=== PATIENT | female | born 1995 | race African-American/Black ===

== ENCOUNTER 2020-06-27 21:47 | Emergency (ER) | payer SELFPAY ==
[~2020-06-27] VITALS: Ht 157.5 cm; Wt 65.9 kg
[~2020-06-27 21:47] MED LIST: CEPH500C PO; ONDA8TAB13 PO
[2020-06-27] MEDS ORDERED: FAMOTIDINE 20 MG (PEPCID) TABLET PO STA (22:05)
[2020-06-27] MEDS ORDERED: ONDANSETRON 4 MG/2 ML (SDV) Z0FRAN IVP ONE ×2 (22:15→23:30)
[2020-06-27] MEDS ORDERED: LIDOCAINE 2% VISCOUS 15 ML UDC PO ONE (22:15)
[2020-06-27] MEDS ORDERED: ANTACID SUSP 30 ML UDC (MYLANTA) PO ONE (22:15)
[2020-06-27] MEDS ORDERED: LACTATED RINGERS 1,000 ML IV ONE (22:15)
[2020-06-27 22:18] LABS: BASOPHILS % (AUTO) 0 % (0-10); EOSINOPHILS % (AUTO) 0 % (0-10); HEMATOCRIT 44 % (35-52); HEMOGLOBIN 15.2 g/dL (11.5-16.0); LYMPHOCYTES # (AUTO) 0.4 10^3/uL (1.0-4.0); LYMPHOCYTES % (AUTO) 5 % (12-44); MEAN CORPUSCULAR HEMOGLOBIN 31 pg (25-34); MEAN CORPUSCULAR HGB CONC 35 g/dL (32-36); MEAN CORPUSCULAR VOLUME 88 fL (80-99); MEAN PLATELET VOLUME 10.1 fL (9.0-12.2); MONOCYTES # (AUTO) 0.6 10^3/uL (0.0-1.0); MONOCYTES % (AUTO) 8 % (0-12); NEUTROPHILS # (AUTO) 6.4 10^3/uL (1.8-7.8); NEUTROPHILS % (AUTO) 87 % (42-75); PLATELET COUNT 187 10^3/uL (130-400); WHITE BLOOD COUNT 7.4 10^3/uL (4.3-11.0)
--- NOTE | 2020-06-27 22:19 | ED GI ---
General Chief Complaint: Abdominal/GI Problems Stated Complaint: CHILLS/VOMITING/SOB Source of Information: Patient Exam Limitations: No Limitations History of Present Illness Date Seen by Provider: Jun 27, 2020 Time Seen by Provider: 22:06 Initial Comments Patient arrives ER by private conveyance from home with chief complaint nausea vomiting starting about 5:00 this afternoon after she got off work and ate at [employer]. No one else in her democrat got sick. She has had no diarrhea. She had a normal stool earlier today. She has had no fever chills cough shortness of air but she started noticing some flecks of red blood in her emesis after the fourth or fifth episode and decided that she should come get checked out. She does not have a primary care doctor. She does have Nexplanon in place. Allergies and Home Medications Allergies Coded Allergies: No Known Drug Allergies (Unverified , 08/13/13) Home Medications Ondansetron 4 Mg Tab.rapdis, 4-8 MG PO Q6H PRN for NAUSEA/VOMITING Prescribed by: TOMMY VIGIL on 06/27/20 2331 Promethazine HCl 25 Mg Tablet, 25 MG PO Q6H PRN for NAUSEA/VOMITING Prescribed by: TOMMY VIGIL on 06/28/20 0033 Patient Home Medication List Home Medication List Reviewed: Yes Review of Systems Review of Systems Constitutional: No chills, No diaphoresis, No fever, No malaise EENTM: No Blurred Vision, No Double Vision, No Eye Tearing Respiratory: Denies Cough, Denies Shortness of Air Cardiovascular: Denies Chest Pain, Denies Lightheadedness Gastrointestinal: Abdominal Pain (Epigastric); Denies Constipated, Denies Diarrhea; Nausea, Vomiting Genitourinary: Denies Burning, Denies Discharge Musculoskeletal: No back pain, No joint pain All Other Systems Reviewed Negative Unless Noted: Yes Past Lzfxdhe-Mgczev-Udbvyu Hx Patient Social History Alcohol Use: Occasionally Uses Drug of Choice: Denies Smoking Status: Never a Smoker Past Medical History Hypertension Adverse Reaction/Blood Tranf: No Physical Exam Vital Signs Vital Signs - First Documented 06/27/20 21:58 Temp 36.1 Pulse 98 Resp 17 B/P (MAP) 137/86 (103) Pulse Ox 100 O2 Delivery Room Air Capillary Refill : Height/Weight/BMI Height: 5'3" Weight: 140lbs. oz. 63.800145mt; BMI Method:Stated General Appearance: WD/WN, mild distress HEENT: PERRL/EOMI, pharynx normal Neck: full range of motion, normal inspection Respiratory: lungs clear, normal breath sounds, no respiratory distress, no accessory muscle use Cardiovascular: normal peripheral pulses, regular rate, rhythm, no edema Peripheral Pulses: 2+ Dorsalis Pedis (R), 2+ Left Dors-Pedis (L) Gastrointestinal: normal bowel sounds, non tender, soft, no organomegaly Neurologic/Psychiatric: alert, normal mood/affect, oriented x 3 Skin: normal color, warm/dry Progress/Results/Core Measures Results/Orders Lab Results Laboratory Tests Test 06/27/20 22:05 Range/Units White Blood Count 7.4 4.3-11.0 10^3/uL Red Blood Count 4.97 3.80-5.11 10^6/uL Hemoglobin 15.2 11.5-16.0 g/dL Hematocrit 44 35-52 % Mean Corpuscular Volume 88 80-99 fL Mean Corpuscular Hemoglobin 31 25-34 pg Mean Corpuscular Hemoglobin Concent 35 32-36 g/dL Red Cell Distribution Width 11.2 10.0-14.5 % Platelet Count 187 130-400 10^3/uL Mean Platelet Volume 10.1 9.0-12.2 fL Immature Granulocyte % (Auto) 0 % Neutrophils (%) (Auto) 87 H 42-75 % Lymphocytes (%) (Auto) 5 L 12-44 % Monocytes (%) (Auto) 8 0-12 % Eosinophils (%) (Auto) 0 0-10 % Basophils (%) (Auto) 0 0-10 % Neutrophils # (Auto) 6.4 1.8-7.8 10^3/uL Lymphocytes # (Auto) 0.4 L 1.0-4.0 10^3/uL Monocytes # (Auto) 0.6 0.0-1.0 10^3/uL Eosinophils # (Auto) 0.0 0.0-0.3 10^3/uL Basophils # (Auto) 0.0 0.0-0.1 10^3/uL Immature Granulocyte # (Auto) 0.0 0.0-0.1 10^3/uL Neutrophils % (Manual) 70 % Lymphocytes % (Manual) 2 % Monocytes % (Manual) 15 % Eosinophils % (Manual) 0 % Basophils % (Manual) 0 % Band Neutrophils 5 % Reactive Lymphocytes 8 % Blood Morphology Comment NORMAL Sodium Level 137 135-145 MMOL/L Potassium Level 3.5 L 3.6-5.0 MMOL/L Chloride Level 104 98-107 MMOL/L Carbon Dioxide Level 20 L 21-32 MMOL/L Anion Gap 13 5-14 MMOL/L Blood Urea Nitrogen 12 7-18 MG/DL Creatinine 0.84 0.60-1.30 MG/DL Estimat Glomerular Filtration Rate > 60 BUN/Creatinine Ratio 14 Glucose Level 116 H 70-105 MG/DL Calcium Level 8.5 8.5-10.1 MG/DL Corrected Calcium 8.5-10.1 MG/DL Total Bilirubin 0.9 0.1-1.0 MG/DL Aspartate Amino Transf (AST/SGOT) 22 5-34 U/L Alanine Aminotransferase (ALT/SGPT) 9 0-55 U/L Alkaline Phosphatase 52 40-136 U/L C-Reactive Protein High Sensitivity 0.08 0.00-0.50 MG/DL Total Protein 7.9 6.4-8.2 GM/DL Albumin 4.6 H 3.2-4.5 GM/DL Lipase 8 8-78 U/L Coronavirus 2019 (JOSE) Negative Not Detecte My Orders Orders - TOMMY VIGIL Ed Iv/Invasive Line Start (06/27/20 22:05) Lactated Ringers (Lr 1000 Ml Iv Solution (06/27/20 22:15) Ondansetron Injection (Zofran Injectio (06/27/20 22:15) Lidocaine 2% Viscous 15 Ml (Xylocaine Vi (06/27/20 22:15) Famotidine Tablet (Pepcid Tablet) (06/27/20 22:05) Antacid Suspension (Mylanta Suspension (06/27/20 22:15) Cbc With Automated Diff (06/27/20 22:05) Comprehensive Metabolic Panel (06/27/20 22:05) Hs C Reactive Protein (06/27/20 22:05) Lipase (06/27/20 22:05) Covid 19 Inhouse Test (06/27/20 22:05) Manual Differential (06/27/20 22:05) Ondansetron Injection (Zofran Injectio (06/27/20 23:30) Rx-Ondansetron Po (Rx-Zofran Po) (06/27/20 23:42) Promethazine Injection (Phenergan Injec (06/28/20 00:00) Lactated Ringers (Lr 1000 Ml Iv Solution (06/28/20 00:00) Medications Given in ED Current Medications Medications Dose Ordered Sig/Parviz Route Start Time Stop Time Status Last Admin Dose Admin Lactated Ringer's 1,000 ml @ 0 mls/hr Q0M ONCE IV 06/27/20 22:15 06/27/20 22:16 DC 06/27/20 22:17 0 MLS/HR Lactated Ringer's 1,000 ml @ 0 mls/hr Q0M ONCE IV 06/28/20 00:00 06/28/20 00:01 DC 06/27/20 23:57 0 MLS/HR Ondansetron HCl 4 mg ONCE ONCE IVP 06/27/20 22:15 06/27/20 22:16 DC 06/27/20 22:17 4 MG Ondansetron HCl 4 mg ONCE ONCE IVP 06/27/20 23:30 06/27/20 23:31 DC 06/27/20 23:25 4 MG Promethazine HCl 25 mg ONCE ONCE IVP 06/28/20 00:00 06/28/20 00:01 DC 06/27/20 23:57 25 MG Vital Signs/I&O 06/27/20 21:58 Temp 36.1 Pulse 98 Resp 17 B/P (MAP) 137/86 (103) Pulse Ox 100 O2 Delivery Room Air 06/28/20 00:00 Intake Total 1000 ml Balance 1000 ml Progress Progress Note #1: Time: 23:27 Progress Note Symptoms consistent with a GI bug causing gastroenteritis. We gave her a dose of Zofran and a liter of fluids. A second dose of Zofran was called for as her nausea is not completely gone. She is having some burning esophagitis so we will do a GI cocktail as soon as her nausea is under control. We discussed return precautions and she is okay with the treatment plan. Progress Note #2: Time: 00:32 Progress Note 100 cc of fluids left to go. Her nausea is much better. Were going to allow her to go home with her fianc to drive her. We will send a prescription for Phenergan as well as Zofran. Departure Impression Primary Impression: Viral gastroenteritis Disposition: 01 HOME, SELF-CARE Condition: Stable Departure-Patient Inst. Decision time for Depature: 23:29 Referrals: EVA MONROE MD (PCP/Family) Primary Care Physician HARLEY MACIEL MD Patient Instructions: Viral Gastroenteritis, Adult (DC) Add. Discharge Instructions: It is important that you drink plenty of fluids. Sports drinks such as Gatorade or Powerade are recommended. Zofran 1 to 2 tablets every 6 hours as necessary for nausea and/or vomiting. Phenergan 1 tablet every 6 hours as necessary for breakthrough nausea and/or vomiting. If you develop diarrhea I would suggest you let it go for the first day but if it persists for more than 24 to 48 hours or you are having difficulty staying hydrated then you should treat it. Loperamide 2 tablets for persistent diarrhea. 1 tablet every 4 hours afterwards that you are still having loose, watery stools. Return to the ER promptly if you are having difficulty keeping up with your fluid intake or you have new, worrisome symptoms. This will typically run its course in about 3 to 5 days at the most. Follow-up with primary care or [facility] clinic as necessary to manage symptoms or for refills. You may return to work, sports and school sooner if you are symptom-free for 24 hours without any medications to mask the symptoms. If you have stomach or chest pain I suggest Tums, Rolaids, Maalox etc. Tylenol 1000 mg every 8 hours may be helpful. Daily pantoprazole or Pepcid to reduce stomach acid may also decrease your heartburn for the next several days. All discharge instructions reviewed with patient and/or family. Voiced understanding. Scripts Promethazine HCl (Promethazine Tablet) 25 Mg Tablet 25 MG PO Q6H PRN for NAUSEA/VOMITING, #12 TAB 0 Refills Prov: TOMMY VIGIL 06/28/20 Ondansetron (Ondansetron Odt) 4 Mg Tab.rapdis 4-8 MG PO Q6H PRN for NAUSEA/VOMITING, #12 TAB 0 Refills Prov: TOMMY VIGIL 06/27/20 Work/School Note: School/Childcare Release, Date Seen in the Emergency Department: Jun 27, 2020 Time Dismissed from Emergency Department: 23:31 Return to School: Jul 01, 2020 Restrictions: No Restrictions Work Release Form Date Seen in the Emergency Department: Jun 27, 2020 Return to Work: Jul 01, 2020 Restrictions: No Restrictions TOMMY VIGIL Jun 27, 2020 22:19
[2020-06-27 22:37] LABS: ALANINE AMINOTRANSFERASE 9 U/L (0-55); ALBUMIN 4.6 GM/DL (3.2-4.5); ALKALINE PHOSPHATASE 52 U/L (40-136); BAND NEUTROPHILS 5 %; BASOPHILS % (MANUAL) 0 %; BILIRUBIN,TOTAL 0.9 MG/DL (0.1-1.0); BUN/CREATININE RATIO 14; CALCIUM 8.5 MG/DL (8.5-10.1); CARBON DIOXIDE 20 MMOL/L (21-32); CHLORIDE 104 MMOL/L (98-107); CREATININE SERUM 0.84 MG/DL (0.60-1.30); EOSINOPHILS % (MANUAL) 0 %; GFR ESTIMATED > 60; GLUCOSE 116 MG/DL (70-105); LIPASE 8 U/L (8-78); LYMPHOCYTES % (MANUAL) 2 %; MONOCYTES % (MANUAL) 15 %; NEUTROPHILS % (MANUAL) 70 %; POTASSIUM 3.5 MMOL/L (3.6-5.0); RBC MORPH NORMAL; REACTIVE LYMPHOCYTES 8 %; SODIUM 137 MMOL/L (135-145); TOTAL PROTEIN 7.9 GM/DL (6.4-8.2)
[2020-06-27] MEDS ORDERED: ONDA4TAB11 PO (23:31)
[2020-06-27] MEDS ORDERED: RX-ONDANSETRON 4 MG ODT (ZOFRAN) PPK #4 PO STA (23:42)
[2020-06-28] MEDS ORDERED: LACTATED RINGERS 1,000 ML IV ONE
[2020-06-28] MEDS ORDERED: PROMETHAZINE INJ 25 MG/ML (PHENERGAN) AMP IVP ONE
[2020-06-28] MEDS ORDERED: PROM25TA14 PO (00:33)
[2020-06-28 01:00] VITALS: BP 117/78
== END 2020-06-28 01:00 | disposition home or self-care (01) ==
LOC: EDUNIT# 21:47 → ER 21:49
DX: A08.4 Viral intestinal infection, unspecified (principal); I10 Essential (primary) hypertension; Z20.822 Contact with and (suspected) exposure to COVID-19
CPT/HCPCS: 80053; 83690; 85007; 85027; 86141; 99284; U0002; 36415; 87635